=== PATIENT | male | born 1955 | race Caucasian/White ===

== ENCOUNTER 2018-10-04 08:57 | Outpatient (REF) | payer OTHER, SELFPAY ==
[2018-10-04 20:34] LABS: ALT 28 U/L (12-78); Anion Gap 11.5 mmol/L (3-11); BUN 18 mg/dL (7-18); CO2 23.5 mmol/L (21.0-32.0); CREATININE 1.06 mg/dL (0.70-1.30); Calcium 8.8 mg/dL (8.5-10.1); Chloride 103 mmol/L (98-107); Cholesterol 153 mg/dL (50-200); Glucose 113 mg/dL (70-100); HCG Quant, Pregnancy 3 mIU/mL; HDL Cholesterol 61 mg/dL (40-60); LDL CHOLESTEROL 77 mg/dL (<100); Sodium 138 mmol/L (136-145); Triglyceride 48 mg/dL (30-150)
[2018-10-04 23:00] LABS: Creatine Kinase 296 U/L (39-308)
[2018-10-08 12:27] LABS: Testosterone, Free 5.71 ng/dL (3.67-13.9); Testosterone, Total 272 ng/dL (240-950)
== END 2018-10-04 09:17 ==
LOC: LBN 08:57
PROVIDERS: PCP Internal Medicine; Visit Provider Internal Medicine
DX: Z00.00 Encounter for general adult medical examination without abnormal findings (principal); N52.35 Erectile dysfunction following radiation therapy
CPT/HCPCS: 80048; 80061; 82550; 83721; 84402; 84403; 82105; 84460; 84702

== ENCOUNTER 2019-09-25 16:36 | Outpatient (REF) | payer OTHER, SELFPAY ==
[2019-09-25 21:03] LABS: Anion Gap 10.6 mmol/L (3-11); CO2 25.4 mmol/L (21.0-32.0); CREATININE 1.06 mg/dL (0.70-1.30); Calcium 9.6 mg/dL (8.5-10.1); Chloride 105 mmol/L (98-107); Glucose 117 mg/dL (74-106); Potassium 3.9 mmol/L (3.5-5.1); Sodium 141 mmol/L (136-145); Vitamin B12 417 pg/mL (193-986)
[2019-09-25 21:04] LABS: Hemoglobin A1C 6.1 % (3.8-5.6)
[2019-09-25 21:05] LABS: BUN 24 mg/dL (7-18)
== END 2019-09-25 16:56 ==
LOC: NCHCN 16:36
PROVIDERS: PCP Internal Medicine; Visit Provider Internal Medicine
DX: Z00.00 Encounter for general adult medical examination without abnormal findings (principal); Z13.29 Encounter for screening for other suspected endocrine disorder; Z13.1 Encounter for screening for diabetes mellitus; Z13.21 Encounter for screening for nutritional disorder
CPT/HCPCS: 80048; 82607; 83036; 84443

== ENCOUNTER 2020-10-21 20:09 | Outpatient (REF) | payer OTHER, SELFPAY ==
[2020-10-21 21:29] LABS: Anion Gap 11.9 mmol/L (3-11); BUN 19 mg/dL (7-18); CO2 24.1 mmol/L (21.0-32.0); CREATININE 1.1 mg/dL (0.70-1.30); Calcium 9.6 mg/dL (8.5-10.1); Chloride 105 mmol/L (98-107); Glucose 89 mg/dL (74-106); Potassium 4.2 mmol/L (3.5-5.1); Sodium 141 mmol/L (136-145)
== END 2020-10-21 20:10 | disposition home or self-care (01) ==
LOC: NCHCN 20:09
PROVIDERS: PCP Internal Medicine; Visit Provider Internal Medicine
DX: R73.03 Prediabetes (principal); I10 Essential (primary) hypertension; E66.3 Overweight
CPT/HCPCS: 80048

== ENCOUNTER 2021-11-24 18:54 | Outpatient (REF) | payer OTHER, SELFPAY ==
--- OUTSIDE RECORDS SUMMARY | 2021-11-24 18:59 | XMS_ITS ---
:1955 Author Care Team Providers Name Role Phone ALEX ANGEL MD General Surgeon [phone] JOHNNIE MURDOCK MD Primary Care Provider [phone] Allergies Code Code System Name Reaction Severity Status Onset Penicillins Anaphylaxis Severe Active ? Notes: morphine causes nausea Medications Name Status Start Date Stop Date ? ? atorvastatin 20 mg tablet Active ? Not av ailable Take 1 tablet every day by oral route. ciprofloxacin 500 mg tablet Completed 09/26/200611/05 1 (one) Tablet: twice daily lisinopril Active ? Not available 20 mg qd Problems Name Status Onset Date Source ? Minimal Cognitive Impairment Active 09/15/2021 ? Tachycardia Active 09/15/2021 ? Benign Paroxysmal Positional Vertigo Active 09/16/2021 ? Presbycusis Active 09/16/2021 ? Incontinence of Feces Active 09/16/2021 ? History of Polyp of Colon Active 09/16/2021 ? Polyp of Colon Active 10/28/2021 ? Overweight Active 10/28/2021 ? Erectile Dysfunction Active 10/28/2021 ? Prediabetes Active 10/28/2021 ? Benign Neoplasm of Colon Active ? History Hyperlipidemia Active ? History Periodic Limb Movement Disorder Active ? History Hypertensive Disorder Active ? History Orchitis and Epididymitis Active ? Histor y Sleep Apnea Active ? History Primary Malignant Neoplasm of Testis Active ? History Procedures Date Name Performed by ? 11/17/2021 Colonoscopy Information not avai lable Notes: normal scope 08/07/2016 Colonoscopy Information not avai lable Notes: was unable to reach end of col on. 08/07/2008 Wrist Surgery Information not avai lable Notes: with Dr. Alves left 08/07/2006 Radical Inguinal Orchiectomy Information not available 08/07/2001 Foot Surgery Information not avai lable Notes: R foot- for clubbed feet Results Lab Results Date Name Specimen Result Interpretation Description Value Range Status Address ? 10/07/2016 Pathology TISS ? Report results ? [facility] ([facility] : [address] Past Encounters None recorded. Social History Tobacco Smoking Status Former Smoker Notes: 1985 qu it Vaccine List Vaccine Type COVID-19, mRNA, LNP-S, PF, 100 mcg/0.5 m L dose (Moderna) 10/15/2020?100 mcg 11/11/2020?100 mcg Plan of Care Reminders Provider Appointments None ? ? recorded. Lab None ? ? recorded. Referral None ? ? recorded. Procedures None ? ? recorded. Surgeries None ? ? recorded. Imaging None ? ? recorded. Vitals 10/08/2012 Height Weight Blood Pressure 180.34 cm 98.88 kg 120/80 mm[Hg] 01/31/2008 Weight 90.72 kg 01/15/2007 Weight Blood Pressure 90.72 kg 130/82 mm[Hg] 12/22/2006 Weight Blood Pressure 90.72 kg 128/82 mm[Hg] 11/15/2006 Weight Blood Pressure 90.72 kg 146/88 mm[Hg] 10/09/2006 Weight Blood Pressure 95.71 kg 154/88 mm[Hg] 09/29/2006 Weight Blood Pressure 95.71 kg 144/82 mm[Hg] 09/26/2006 Weight Blood Pressure 95.71 kg 144/88 mm[Hg]
[2021-11-24 20:58] LABS: ALT 29 U/L (16-63); Anion Gap 11.9 mmol/L (3-11); BUN 16 mg/dL (7-18); CO2 24.1 mmol/L (21.0-32.0); CREATININE 1.1 mg/dL (0.70-1.30); Calcium 8.9 mg/dL (8.5-10.1); Calculated LDL 62 mg/dL (<100); Chloride 104 mmol/L (98-107); Cholesterol 158 mg/dL (<200); Glucose 213 mg/dL (74-106); HDL Cholesterol 62 mg/dL (40-60); Potassium 3.7 mmol/L (3.5-5.1); Sodium 140 mmol/L (136-145); Triglyceride 171 mg/dL (<150)
== END 2021-11-24 18:55 | disposition home or self-care (01) ==
LOC: NCHCN 18:54
PROVIDERS: PCP Internal Medicine; Visit Provider Internal Medicine
DX: R73.03 Prediabetes (principal); I10 Essential (primary) hypertension; E66.3 Overweight
CPT/HCPCS: 80048; 80061; 84460

== ENCOUNTER 2023-02-15 17:48 | Outpatient (REF) | payer MEDICARE, SELFPAY ==
[2023-02-15 20:51] LABS: ALT 27 U/L (16-63); Anion Gap 9.7 mmol/L (3-11); BUN 18 mg/dL (7-18); CO2 24.3 mmol/L (21.0-32.0); CREATININE 1.3 mg/dL (0.70-1.30); Calcium 9.7 mg/dL (8.5-10.1); Calculated LDL 98 mg/dL (<100); Chloride 105 mmol/L (98-107); Cholesterol 179 mg/dL (<200); Estimated GFR 59.84 (mL/min/1.73m2); Glucose 94 mg/dL (74-106); HDL Cholesterol 72 mg/dL (40-60); Potassium 4.1 mmol/L (3.5-5.1); Sodium 139 mmol/L (136-145); Triglyceride 46 mg/dL (<150)
[2023-02-15 21:03] LABS: Creatine Kinase 148 U/L (39-308)
== END 2023-02-15 17:49 | disposition home or self-care (01) ==
LOC: NCHCN 17:48
PROVIDERS: PCP Internal Medicine; Visit Provider Internal Medicine
DX: E78.5 Hyperlipidemia, unspecified (principal); I10 Essential (primary) hypertension; E11.9 Type 2 diabetes mellitus without complications
CPT/HCPCS: 80048; 80061; 82550; 84460

== ENCOUNTER 2024-05-09 16:23 | Outpatient (REF) | payer MEDICARE, OTHER, SELFPAY ==
[2024-05-09 20:46] LABS: Hemoglobin A1C 5.5 % (<5.7)
[2024-05-09 21:47] LABS: BUN 13 mg/dL (7-18); CREATININE 1.1 mg/dL (0.70-1.30); Calcium 9.7 mg/dL (8.5-10.1); Calculated LDL 136 mg/dL (<100); Chloride 102 mmol/L (98-107); Cholesterol 219 mg/dL (<200); Estimated GFR 72.67 (mL/min/1.73m2); Glucose 102 mg/dL (74-106); HDL Cholesterol 73 mg/dL (40-60); Potassium 4.2 mmol/L (3.5-5.1); Sodium 136 mmol/L (136-145); TSH 0.77 uIU/Ml (0.36-3.74); Triglyceride 51 mg/dL (<150); Vitamin B12 255 pg/mL (193-986)
[2024-05-13 15:15] LABS: Albumin g/dL 4.6 g/dL (3.6-5.2); Immunotyping, Serum (See Note); Monoclonal Spike 3.3 % (None Seen); Monoclonal Spike g/dL 0.2 g/dL (None Seen); Total Protein 7.4 g/dL (6.3-8.2)
== END 2024-05-09 16:24 | disposition home or self-care (01) ==
LOC: NCHCN 16:23
PROVIDERS: PCP Internal Medicine; Visit Provider Internal Medicine
DX: E78.5 Hyperlipidemia, unspecified (principal); I10 Essential (primary) hypertension
CPT/HCPCS: 80048; 80061; 82607; 83036; 84155; 84165; 84443; 86320